=== PATIENT | female | born 1995 | race American Indian/Alaskan Native ===

== ENCOUNTER 2018-09-28 15:25 | Outpatient (CLI) | payer OTHER | END 2018-09-28 16:54 | disposition home or self-care (01) | LOC: NST 15:25 | DX: Z34.83 Encounter for supervision of other normal pregnancy, third trimester (principal) ==

== ENCOUNTER 2018-10-02 09:10 | Outpatient (CLI) | payer OTHER | END 2018-10-02 09:47 | disposition home or self-care (01) | LOC: NST 09:10 | DX: Z34.83 Encounter for supervision of other normal pregnancy, third trimester (principal) ==